=== PATIENT | male | born 1980 | race Two or more races ===

== ENCOUNTER 2022-05-04 12:49 | Inpatient (IN) | payer OTHER ==
[~2022-05-04] VITALS: Ht 182.9 cm; Wt 129.3 kg
--- NOTE | 2022-05-04 13:33 | NUR ---
SE RECIBE PTE ALERTA Y ORIENTADO X3 REFIERE AREA ENROJECIDA, CALIENTE, Y CON DOLOR CONSTANTA HACE 3 SEMANAS. PTE EN TX DE ANTIBIOTICO Y NO MEJORA. SE FRANK S/V Y SE UBICA.
--- NOTE | 2022-05-04 14:52 | NUR ---
LAB SAMPLES ARE TAKEN ACCORDINGLY.
== END 2022-05-08 15:37 | disposition home or self-care (01) | DRG 603 ==
LOC: ER 12:49 → SURG 20:28 → MEDJ 20:28 → SEC-K 21:11 → SURG 05-05 02:29 → MEDI 05-05 12:33
PROVIDERS: ADMIT Internal Medicine; ATTEND Internal Medicine
PROC: B54BZZZ Ultrasonography of Right Lower Extremity Veins (ICD-10-PCS; 2022-05-04)
PROC: BL3 Imaging, Connective Tissue, Magnetic Resonance Imaging (MRI) (ICD-10-PCS; 2022-05-04)
PROC: B44FZZZ Ultrasonography of Right Lower Extremity Arteries (ICD-10-PCS; principal; 2022-05-05)
PROC: B53BZZZ Magnetic Resonance Imaging (MRI) of Right Lower Extremity Veins (ICD-10-PCS; 2022-05-05)
DX: L03.115 Cellulitis of right lower limb (principal); Z20.822 Contact with and (suspected) exposure to COVID-19; E66.9 Obesity, unspecified; Z68.39 Body mass index [BMI] 39.0-39.9, adult
CPT/HCPCS: 73221

== ENCOUNTER 2024-12-26 08:59 | Inpatient (IN) | payer OTHER ==
[~2024-12-26] VITALS: Ht 188 cm; Wt 116.1 kg
--- NOTE | 2024-12-26 09:26 | NUR ---
SE RECIBE PTE ALERTA Y ORIENTADO. PTE REFIERE PADMINI DOLOR EN TESTICULOS DESDE LA MANANA DE HOY SIN OTRO SINTOMA. SE MIDEN S/V Y SE UBICA.
[2024-12-26] MEDS ORDERED: 0.9 % SODIUM CHLORIDE 1,000 ML IV SCH (09:45)
[2024-12-26] MEDS ORDERED: KETOROLAC TROMETHAMINE 60 MG VIAL IM ONE ×2 (09:45→09:53)
[2024-12-26] MEDS ORDERED: ONDANSETRON HCL 2 MG/ML VIAL ONE (09:53)
[2024-12-26] MEDS ORDERED: ONDANSETRON HCL 2 MG/ML VIAL IV ONE (10:00)
--- NOTE | 2024-12-26 10:08 | NUR ---
PTE EVALUADA POR EL DR, CANTU QUIE ORDENA TRATAMIENTO LA CUAL SE EJECUCTA. SE MANTIENE BAJO OBSERVACION.
[2024-12-26 10:19] LABS: HEMATOCRIT 45.8 % (39.0-48.0); HEMOGLOBIN 16.1 g/dL (13-16.00); MEAN CELL VOLUME 85.2 fL (80.0-100.00); MEAN CORPUSCULAR HGB CONC 35.2 g/dl (32.0-36.0); PLATELET COUNT 243 K/uL (150-450); RED BLOOD COUNT 5.38 M/uL (4.00-6.00); RED CELL DISTRIBUTION WIDTH 13.4 % (11.5-14.5)
[2024-12-26 10:44] LABS: CALCIUM 9.6 mg/dL (8.5-10.1); CREATININE SERUM 1.38 mg/dL (0.70-1.30); GFR 55.47; POTASSIUM 3.39 mEq/L (3.5-5.1)
[2024-12-26 10:50] LABS: URINE APPEARANCE Clear; URINE BILIRRUBIN Small (NEGATIVE); URINE BLOOD Negative; URINE COLOR Dark Yellow; URINE GLUCOSE Negative (NEGATIVE); URINE KETONE 15 (NEGATIVE); URINE LEUKOCYTE Trace; URINE NITRATE Negative; URINE PROTEIN 30 (NEGATIVE)
[2024-12-26 10:53] LABS: URINE BACTERIA 15.9 uL (0.0-1933); URINE CAST 3.38 uL (0.0-1.40); URINE EPITHELIAL CELLS 14.2 uL (0.0-38.8); URINE RBC 14.1 uL (0.0-20.8)
[2024-12-26 12:51] LABS: INR 1.29; PARTIAL THROMBOPLASTIN TIME 24.3 SECONDS (22.0-34.0); PROTHROMBIN TIME 13.8 SECONDS (9.0-11.5)
[2024-12-26 12:55] LABS: COVID-19 AG NEGATIVE (NEGATIVE)
[2024-12-26 12:56] LABS: INFLUENZA A AG NEGATIVE (NEGATIVE)
[2024-12-26] MEDS ORDERED: OxyCODONE HCL/APAP UD (PERCOCET) PO ONE (15:00)
[2024-12-26] MEDS ORDERED: CEFAZOLIN SODIUM 1,000 MG VIAL ONE (15:04)
[2024-12-26] MEDS ORDERED: CEFAZOLIN SODIUM 1,000 MG VIAL IV STA (15:04)
[2024-12-26 17:31] VITALS: BP 140/83; O2SAT 100
== END 2024-12-27 20:08 | disposition home or self-care (01) | DRG 712 ==
LOC: ER 09:00 → SURH 12:44
PROVIDERS: Emergency Medicine; ADMIT Urology; ATTEND Urology
PROC: 0VS90ZZ Reposition Right Testis, Open Approach (ICD-10-PCS; 2024-12-26)
PROC: BV44ZZZ Ultrasonography of Scrotum (ICD-10-PCS; 2024-12-26)
PROC: 0VQC0ZZ Repair Bilateral Testes, Open Approach (ICD-10-PCS; principal; 2024-12-26 13:00)
DX: N44.00 Torsion of testis, unspecified (principal)